=== PATIENT | male | born 1950 | race African-American/Black ===

== ENCOUNTER 2016-09-07 12:36 | Inpatient (IN) | payer MEDICARE, BC ==
--- NOTE | ~2016-09-07 | HP ---
History And Physical [place] [id number] [facility] [place]. [address] NAME: SEDRICK BARRIOS JR : 52 STATUS : REG ER PAT#: [id number] AGE: 65 ADM/REG DATE : 09/07/16 MR#: [id number] REPORT SERV DATE: 09/07/16 DICTATED BY: ERICA COUCH DATE: 09/07/16 REPORT STATUS : Draft TRANSCRIBED BY: MODL DATE: 09/07/16 DATE OF ADMISSION: 09/07/2016 CHIEF COMPLAINT: Loss of balance and body aches. HISTORY OF PRESENT ILLNESS: The patient is a 65-year-old male with history of bilateral lung transplant at [place], diabetes, CVA, CKD, BPH, bradycardia with resultant pacemaker, and COPD, who presents after having 48 hours of progressive weakness on the left side, change in speech that has been noticeable by the patient and the family. The patient reports that he has had stroke in the past and this was a similar type episode. The patient reports that he has had more pain over after having recent surgery about 4 weeks ago and has been taking more pain medications. Symptoms were asymmetric on his balance as he was having left-sided weakness more, has been constant, moderate severity. No pain radiating symptoms. No nausea, vomiting, shortness of breath, fever, or chills. Did have tachycardia. No feelings of palpitations. No worsening or relieving symptoms though the symptoms are still currently present. The patient does report that the patient was noted to be cocaine positive on UDS. Denies actually cocaine, however, reports that he did have exposure approximately 1 to 2 days ago and is very adamant that he has not taken anything. The patient is accompanied by son who is at bedside and is also aware of issues. REVIEW OF SYSTEMS: GENERAL: Noted for weakness, but no fever or chills. EYES: No eye pain or visual changes. ENT: No sore throat or ear pain. NEUROLOGIC: He does have numbness, speech changes, weakness on the left side . Abnormal gait. SKIN: No rashes or bruising. RESPIRATORY: No shortness of breath or cough. CV: No chest pain or palpitations but tachycardic. GI: No nausea or vomiting. : No dysuria or hematuria. MUSCULOSKELETAL: He does have chronic myalgias and arthralgias for which he was taking pain medications for. ENDO: Increased fatigue but no polyuria. HEME: No bleeding or bruising. IMMUNOLOGIC: No rhinorrhea. PSYCHIATRIC: No anxiety. Denies any acute confusion. PAST MEDICAL HISTORY: Diabetes type 2, sleep apnea, COPD, pacemaker, CVA, history of CKD, BPH, depression, gout, and bilateral lung transplant as well. SOCIAL HISTORY: He denies any current smoking, drinking, or recreational drugs, however, he did have exposure to people using cocaine. FAMILY HISTORY: Diabetes and hypertension. History And Physical [address] [address] NAME: SEDRICK BARRIOS JR : 52 STATUS : REG ER PAT#: [id number] AGE: 65 ADM/REG DATE : 09/07/16 MR#: [id number] REPORT SERV DATE: 09/07/16 DICTATED BY: ERICA COUCH DATE: 09/07/16 REPORT STATUS : Draft TRANSCRIBED BY: ANALILIA DATE: 09/07/16 SURGICAL HISTORY: Bilateral lung transplant. Pacer placement. Appendectomy. Neck surgery. TURP. ALLERGIES: NSAIDS, STATIN, IBUPROFEN, AND VORICONAZOLE. MEDICATIONS: Allopurinol; amlodipine; Lipitor; calcitriol; ; dapsone; Lasix; Neurontin; Robaxin; Myfortic; Percocet; Protonix; and Deltasone. EKG: Sinus tach and actually atrial flutter pattern with 2:1, rate of 142, noted after adenosine trial also. PHYSICAL EXAMINATION: VITAL SIGNS: The patient's blood pressure 139/93, temperature 98.3, pulse 142, respirations 20, and O2 saturation 99% on room air. GENERAL: Alert, no acute distress, but anxious. EYES: No scleral icterus. EOMI. ENT: Dry mucous membranes. Nares patent. RESPIRATORY: Clear to auscultation. No wheezes. Equal chest expansion. CV: Tachycardic after adenosine trial, still has atrial flutter pattern on rhythm. Cap refill less than 2 seconds in hands. GI: Soft, nontender. Bowel sounds positive. : Non-circumcised. Normal external genitalia. SKIN: Warm, dry. LYMPH: No cervical or supraclavicular lymphadenopathy. MUSCULOSKELETAL: Moves all extremities. Able to ambulate but very slow. NEUROLOGIC: No facial droop, but does have slow vocal omi, left hand side grossly weak, but able to ambulate with assistance but unable to lift self core back and forth around bed. PSYCHIATRIC: Anxious but appropriate mood and affect. LAB DATA: BNP 28.7. UDS positive for benzos and cocaine. Brain without contrast, no acute intracranial abnormality. Moderate cortical volume loss. Chronic deep white matter ischemic changes. Urinalysis, trace leukocyte esterase, nitrite negative, but only 3 wbc's, few bacteria. CMP: Sodium 141, potassium 4.0, chloride 105, bicarb 24, BUN and creatinine 39 and 1.96. Glucose 129. Troponin negative. LFTs within normal limits. Alkaline phosphatase 162. CBC: WBC count 9.5, H and H 11.8 and 37.6, and platelets 339. INR 1.1. ASSESSMENT AND PLAN: 1. Possible CVA. 2. Atrial flutter. 3. Acute cocaine exposure. 4. VINCENZO. 5. Hypertension. 6. Pacer history. 7. Bilateral lung transplant. 8. Obstructive sleep apnea. 9. Chronic immunosuppression. History And Physical [address] [address] NAME: SEDRICK BARRIOS JR : 52 STATUS : REG ER PAT#: [id number] AGE: 65 ADM/REG DATE : 09/07/16 MR#: [id number] REPORT SERV DATE: 09/07/16 DICTATED BY: ERICA COUCH DATE: 09/07/16 REPORT STATUS : Draft TRANSCRIBED BY: ANALILIA DATE: 09/07/16 PLAN: 1. For possible CVA with prior CVA history, does have a flutter history, cocaine history, and prior CVA history. Non tPA candidate since symptoms began greater than 48 hours ago, will need PT/OT/ST, aspirin. Continue home statin dose with atorvastatin 40 due to chronic immunosuppression medications and possible interactions and will have Neurology evaluate echocardiogram in the presence of flutter pattern. 2. Atrial flutter, Cardizem drip per Cardiology. No beta blockers with cocaine history. Adenosine has been given in the emergency room, still has flutter pattern and will keep on Cardizem drip. 3. Acute on chronic cocaine use. Denies use but does have exposure. I have discussed this with the patient and family. 4. VINCENZO. IV fluids. Monitor. Hold diuretics. 5. Hypertension, monitor, permissive with CVA. 6. 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 7. Bilateral lung transplant. Continue home chronic suppression therapy with prednisone, Myfortic, and dapsone for prophylaxis. 8. CEE, monitor serial O2. 9. Chronic immunosuppression. Monitor for additional super infections. 10.All questions answered with the patient and family at the bedside. Guarded prognosis discussed due to multitude of comorbidities. DDN/MODL Erica Couch MD / [id number]
--- NOTE | ~2016-09-07 | CN ---
Consultation Report [facility] [address] [place]. [address] NAME: SEDRICK CARO JR : 52 STATUS : ADM IN PAT#: [id number] AGE: 65 ADM/REG DATE : 09/07/16 MR#: [id number] REPORT SERV DATE: 09/08/16 DICTATED BY: RAJEEV STUART DATE: 09/08/16 REPORT STATUS : Draft TRANSCRIBED BY: MODL DATE: 09/08/16 CARDIOVASCULAR CONSULTATION DATE OF CONSULTATION: 09/08/2016 REFERRING PHYSICIAN: Rajeev Poole M.D., F.A.CXiomaraC. HISTORY OF PRESENT ILLNESS: Mr. Sedrick Caro is a 65-year-old gentleman, with past medical history significant for bilateral lung transplant at [place] in 2008. He also has history of chronic kidney disease, diabetes, remote CVA, and bradycardia, with permanent pacemaker implantation by Dr. Mo. He presented to the emergency room complaining of 48 hour history of increasing left-sided weakness. He denies any chest pain or shortness of breath. He denies any gastrointestinal, genitourinary, or respiratory complaints. REVIEW OF SYSTEMS: As above, otherwise noncontributory. The patient denies any orthopnea, paroxysmal nocturnal dyspnea, syncope, or presyncope. PAST MEDICAL HISTORY: As noted above and significant for bilateral lung transplant at [place]. The patient also with a history diabetes, CVA, chronic kidney disease, benign prostatic hypertrophy. He has history of COPD. He is status post permanent pacemaker implantation as noted above. MEDICATIONS: Prior to admission, see list. ALLERGIES: THE PATIENT REPORTS ALLERGIES TO STATINS, IBUPROFEN, VORICONAZOLE, AND NONSTEROIDAL MEDICATIONS. FAMILY HISTORY: Noncontributory. SOCIAL HISTORY: The patient denies any smoking or ethanol use. However, his urine drug screen is positive for cocaine and benzodiazepines. PHYSICAL EXAMINATION: VITAL SIGNS: Blood pressure 101/60, pulse 69, respiratory rate 16. The patient is afebrile. GENERAL: This is a well-developed, well-nourished, 65-year-old male, alert and oriented x3, in no acute distress. NECK: No jugular venous distention, hepatojugular reflux, or carotid bruits. CARDIOVASCULAR: Normal rate with irregular rhythm. No murmur, gallop, click, or rub. LUNGS: Clear to auscultation without wheezes, rales, or rhonchi. ABDOMEN: Soft, nontender, and nondistended. Positive bowel sounds. EXTREMITIES: Without clubbing, cyanosis, or edema. Consultation Report [place] [address] [place]. [address] NAME: SEDRICK CARO JR : 52 STATUS : ADM IN PAT#: [id number] AGE: 65 ADM/REG DATE : 09/07/16 MR#: [id number] REPORT SERV DATE: 09/08/16 DICTATED BY: RAJEEV STUART DATE: 09/08/16 REPORT STATUS : Draft TRANSCRIBED BY: MODL DATE: 09/08/16 DIAGNOSTIC DATA: EKG on presentation shows atrial fibrillation/flutter with right bundle branch block. LABORATORY DATA: Laboratory significant as noted above. His urine drug screen positive for benzodiazepines and cocaine. The patient's BMP significant for elevated BUN and creatinine at 39 and 1.96. The patient's troponins are 0.02, 0.03, and 0.04. CPK and MB are normal. ASSESSMENT: 1. Atrial fibrillation/flutter, likely exacerbated by cocaine, as well as history of lung transplant. 2. Status post permanent pacemaker implantation. 3. Status post bilateral lung transplant. 4. Questionable cerebrovascular accident. PLAN: 1. Check echo. 2. Continue Cardizem for rate control. 3. Check permanent pacemaker. 4. Heparin drip. SA/MODL Rajeev Stuart M.D., [facility] / [id number] CC: MD Rajeev Guerra M.D., F.A.C.C.
--- NOTE | ~2016-09-07 | DS ---
Discharge Summary [facility] [address] [place]. [address] NAME: SEDRICK BARRIOS JR : 52 STATUS : ADM IN PAT#: [id number] AGE: 65 ADM/REG DATE : 09/07/16 MR#: [id number] REPORT SERV DATE: 09/10/16 DICTATED BY: TOMY GOODEN DATE: 09/10/16 REPORT STATUS : Draft TRANSCRIBED BY: MODL DATE: 09/10/16 ADMISSION DATE: 09/07/2016 DISCHARGE DATE: 09/10/2016 PROCEDURES DONE: 1. 09/07/2016 CT of the brain without contrast, no acute intracranial abnormality identified at this time. [id number] cortical volume loss and finding compatible with mild chronic deep white matter ischemic changes. 2. 09/07/2016 chest x-ray: Low lungs with bibasilar atelectasis. Otherwise, no acute cardiopulmonary abnormality appreciated. 3. 09/08/2016 MRA of the head, normal intracranial MRA of the intracranial structures. Maximum intensity projection images were utilized for review. 4. MRA of the neck. No significant stenosis, carotid or vertebrals. 5. 08/29/2016 MRI of the brain negative evidence for acute or chronic ischemic changes. Incidental left cataract surgery noted. 6. 09/09/2016 2D echo: Difficult study due to limited acoustic windows. Normal LV size and systolic function. EF of 50% to 55%. No regional wall motion abnormalities identified. Mild diastolic dysfunction. Normal RV size and systolic function. Mild left atrial enlargement. No evidence of apical thrombus with use of IV contrast. Negative intravenous bubble study. No evidence of intracardiac shunt. CONSULTS: Dr. Colon. REASON FOR ADMISSION: Loss of balance and body aches. HISTORY OF PRESENT ILLNESS: A 65-year-old black male with past medical history of bilateral lung transplant at [place], history of diabetes, CVA, chronic kidney disease, BPH, bradycardia with pacemaker, COPD, presenting with 48 hours of loss of balance and body aches. The patient was admitted for further evaluation of possible TIA/CVA since the patient already has history of CVA. The patient had MRI and MRA of the head and neck, which were all within normal limits. The patient turned out to have positive for both benzos and cocaine. A repeat UDS on 09/08/2016 shows positive benzos, cocaine, and cannabis. More importantly, the patient was also noted to be in atrial fibrillation. Cardiology was consulted. The patient's atrial fibrillation was controlled with Cardizem, went to sinus rhythm. Cardiology recommended the patient be started on Eliquis. The patient will be started on 5 mg p.o. b.i.d. on discharge. DISPOSITION: The patient feels fine, no complaints. ACTIVITIES: As tolerated. DIET: Cardiac. INSTRUCTIONS UPON DISCHARGE: 1. The patient to follow up with Cardiology within two to three weeks. 2. The patient to follow up with primary care physicians within one to two weeks. Discharge Summary [place] [id number] [place]. [address] NAME: SEDRICK BARRIOS JR : 52 STATUS : ADM IN [facility]#: [id number] AGE: 65 ADM/REG DATE : 09/07/16 MR#: [id number] REPORT SERV DATE: 09/10/16 DICTATED BY: TOMY GOODEN DATE: 09/10/16 REPORT STATUS : Draft TRANSCRIBED BY: ANALILIA DATE: 09/10/16 MEDICATIONS UPON DISCHARGE: 1. Allopurinol 100 mg p.o. b.i.d. 2. Lipitor 40 mg p.o. q.h.s. 3. Calcitriol 0.75 mcg p.o. daily. 4. Cyclosporine 100 mg p.o. b.i.d. 5. Dapsone 100 mg p.o. daily. 6. Neurontin 100 mg p.o. b.i.d. 7. Robaxin 750 mg p.o. q.h.s. 8. Protonix 40 mg daily. 9. Prednisone 5 mg daily. 10.Betapace 40 mg b.i.d. 11.Mycophenolate 360 mg p.o. b.i.d. 12.Oxycodone 7.5 one tablet p.o. q.6 hours p.r.n. 13.Norvasc 5 mg p.o. daily. 14.Lasix 40 mg daily. DIAGNOSES UPON DISCHARGE: 1. Loss of balance with body aches secondary to either cocaine/benzo/cannabis use versus atrial flutter/atrial fibrillation. 2. Atrial fibrillation/flutter. Rate controlled on Eliquis. 3. Drug abuse. 4. Hypertension. 5. Acute kidney injury. 6. History of cerebrovascular accident. 7. History of lung transplant, on immunosuppressions. 8. Benign prostatic hypertrophy. 9. Bradycardia, status post pacemaker. 10.Chronic kidney disease. ARVIN/MARYL Tomy Gooden MD / [id number] CC: Tomy Gooden MD
[~2016-09-07 12:36] MED LIST: ACTONEL150 MG PO; ASAB PO; ATEN25 PO; ATRONASAL3 NAS; BACDS PO; BIST PO; BUM1 PO; CALTRA600D PO; CANNOT RECALL; CARDCD180 PO; CARDCD240 PO; CARDIZEM LA360 MG PO; CARTIA XT180 MG/24 PO; CATPATCH1 TOP; CITRACAL PO; COLCH6 PO; DAPSONE 100 MG100 MG OR; DAPSONE 100 MG100 MG PO; DSS PO; DURA25 TOP; FISH-EPA1000 MG PO; FLONASE NAS; HCTZ25B PO; HYDROCHLOROT25 MG PO; IMMUNE GLOBULIN; IRON OTC PO; IRON325 MG PO; L20 PO; L40 PO; LEXAPRO20 PO; LOPID6 PO; LORT7 PO; LORTAB10 PO; MEDROLPAK4; METHOC500B PO; METHOC750B PO; MEVACOR PO; MIRALAXPKT PO; MYFORTIC360 MG PO; NEBUPENT300 M1 IN; NEORAL100 MG OR; NEORAL100 MG PO; NEORAL25 MG OR; NEORAL25 MG PO; NEUR100 PO; NORCO1 TAB PO; NORV5 PO; NOVOPEN SC; NYS500UDL PO; P1 PO; P10 PO; P5 PO; PCET PO; PERCOCET1 TA2 PO; PERCOCET1 TA4 PO; PLAVIX PO; PR12.5 PO; PRAV10 PO; PREDNISOL5 PO; PROTONIX PO; RECLAST IV; ROCALTROL 0.0.25 MCG PO; ROCALTROL0.25 MCG OR; ROCALTROL0.25 MCG PO; ROCALTROL0.5 MCG PO; SANDIMMUNE100 MG OR; SANDIMMUNE25 MG OR; SANDIMMUNE25 MG PO; SEPTRA DS1 TAB PO; TIAZA1 PO; TRAMADOL PO; VALCYTE PO; VALTREX1 GM PO; VALTREX5 PO; VFEND200 PO; VITAMIN D1000 UNI1 PO; VITD PO; WELCHOL 625 MG625 MG PO; Z100 PO; ZETIA PO; [UNRECOGNIZED DRUG - OTHER] PO
[2016-09-07 13:37] LABS: BASOPHILS 0.2 %; BASOPHILS ABSOLUTE 0.02 10/3/uL (0.0-0.16); EOSINOPHILS 1.8 %; EOSINOPHILS ABSOLUTE 0.17 10/3/uL (0.0-0.53); ER CBC TAT 0 Hrs 05 Mins; HEMATOCRIT 37.6 % (40.0-51.0); HEMOGLOBIN 11.8 g/dL (13.6-17.8); IMMATURE GRANULOCYTES 0.8 %; IMMATURE GRANULOCYTES ABSOLUTE 0.08 10/3/uL (0.0-0.11); LYMPHOCYTES 9.1 %; LYMPHOCYTES ABSOLUTE 0.87 10/3/uL (0.67-4.30); MANUAL DIFF NO %; MEAN CORPUS HGB CONC 31.4 g/dL (32.0-36.0); MEAN CORPUSCULAR HEMOGLOB 25.9 pg (26.0-34.0); MEAN CORPUSCULAR VOLUME 82.5 fL (80-100); MEAN PLATELET VOLUME 9.9 fL (9.2-13.0); MONOCYTES 9.5 %; NEUTROPHILS 78.6 %; NEUTROPHILS ABSOLUTE 7.48 10/3/uL (2.02-8.40); PLATELET COUNT 339 10/3/uL (150-400); RBC DISTRIBUTION WIDTH 14.3 % (12.0-16.0); RED CELL COUNT 4.56 10/6/uL (4.7-6.1); WHITE BLOOD CELLS 9.5 10/3/uL (4.5-10.5)
[2016-09-07 13:46] LABS: INTERNATIONAL NORMAL RATI 1.1 UNITS (-); PROTIME (NOT ORD) 14.4 SEC (12.0-14.5)
[2016-09-07 13:55] LABS: ASCORBIC ACID (UR NOT ORDER) NEG (NEG); BILIRUBIN, URINE NEGATIVE (NEG); ER URINALYSIS TAT 0 Hrs 14 Mins; KETONE, URINE NEGATIVE (NEG); LEUKOCYTE ESTERASE(NOT OR TRACE (NEG); NITRITE (URINE) NEG (NEG); WBC (NOT ORDERED) (RFLEX) 3 (0-5)
[2016-09-07 13:55] LABS: CHLORIDE, SERUM 105 MMOL/L (96-112); CO2 (CARBON DIOXIDE) 24 MMOL/L (24-34); SGOT(AST) 21 U/L (5-40); SGPT(ALT) 20 U/L (5-65); SODIUM, SERUM 141 MMOL/L (135-148); TOTAL BILIRUBIN 0.8 MG/DL (0-1.2); TROPONIN I <0.02 NG/ML (<0.05)
[2016-09-07 13:56] LABS: A/G RATIO 0.7 (0.7-1.9); ALBUMIN 3.4 G/DL (3.5-5.0); ALKALINE PHOSPHATASE 162 U/L (45-117); BUN (BLOOD UREA NITROGEN) 39 MG/DL (6-23); CALCIUM, SERUM 9.8 MG/DL (8.5-10.4); CREATININE 1.96 MG/DL (0.70-1.30); GFR AFRICAN AMERICAN 41 ML/MIN (>=60); GFR NON AFRICAN AMERICAN 35 ML/MIN (>=60); GLOBULIN 4.6 G/DL (2.5-4.1); GLUCOSE, SERUM 129 MG/DL (60-99)
[2016-09-07] MEDS ORDERED: MYFORTIC360 MG PO (14:06)
[2016-09-07] MEDS ORDERED: Z100 PO (14:06)
[2016-09-07] MEDS ORDERED: P5 PO (14:06)
[2016-09-07] MEDS ORDERED: METHOC750B PO (14:07)
[2016-09-07] MEDS ORDERED: PERCOCET 7.5/321 TAB PO (14:08)
[2016-09-07] MEDS ORDERED: NEUR100 PO (14:08)
[2016-09-07] MEDS ORDERED: DAPSONE 100 MG100 MG PO (14:09)
[2016-09-07] MEDS ORDERED: ROCALTROL0.25 MCG PO (14:09)
[2016-09-07] MEDS ORDERED: NORV5 PO (14:09)
[2016-09-07] MEDS ORDERED: L40 PO (14:09)
[2016-09-07] MEDS ORDERED: PROTONIX PO (14:10)
[2016-09-07] MEDS ORDERED: LIPITOR40 PO (14:10)
[2016-09-07 14:13] LABS: AMPHETAMINES (NOT ORD) NEG (NEG); BARBITURATES (NOT ORDERED NEG (NEG); BENZODIAZEPINES (NOT ORD) POS (NEG); CANNABINOIDS (THC) NEG (NEG); COCAINE (NOT ORDERED) POS (NEG); OPIATES NEG (NEG); PHENCYCLIDINE(PCP) NEG (NEG); TRICYCLICS NEG (NEG)
[2016-09-07] MEDS ORDERED: NEORAL100 MG PO (14:13)
[2016-09-07 22:24] LABS: BASOPHILS 0.3 %; BASOPHILS ABSOLUTE 0.03 10/3/uL (0.0-0.16); EOSINOPHILS 2.5 %; EOSINOPHILS ABSOLUTE 0.22 10/3/uL (0.0-0.53); HEMOGLOBIN 12.1 g/dL (13.6-17.8); IMMATURE GRANULOCYTES 0.7 %; IMMATURE GRANULOCYTES ABSOLUTE 0.06 10/3/uL (0.0-0.11); LYMPHOCYTES 19.4 %; LYMPHOCYTES ABSOLUTE 1.71 10/3/uL (0.67-4.30); MEAN CORPUS HGB CONC 31.8 g/dL (32.0-36.0); MEAN CORPUSCULAR HEMOGLOB 26.5 pg (26.0-34.0); MEAN CORPUSCULAR VOLUME 83.2 fL (80-100); MEAN PLATELET VOLUME 9.3 fL (9.2-13.0); MONOCYTES 12.7 %; MONOCYTES ABSOLUTE 1.12 10/3/uL (0.21-1.20); NEUTROPHILS 64.4 %; NEUTROPHILS ABSOLUTE 5.66 10/3/uL (2.02-8.40); PLATELET COUNT 348 10/3/uL (150-400); RBC DISTRIBUTION WIDTH 14.3 % (12.0-16.0); RED CELL COUNT 4.57 10/6/uL (4.7-6.1); WHITE BLOOD CELLS 8.8 10/3/uL (4.5-10.5)
[2016-09-07 22:25] LABS: MANUAL DIFF NO %
[2016-09-07 22:31] LABS: INTERNATIONAL NORMAL RATI 1.1 UNITS (-); PROTIME (NOT ORD) 14.5 SEC (12.0-14.5)
[2016-09-07 22:32] LABS: PARTIAL THROMBO TIME 31.9 SEC (22.5-37.2)
[2016-09-07 22:47] LABS: CPK 96 U/L (0-200); HDL CHOLESTEROL 62 MG/DL (> 39); PHOSPHORUS, SERUM 2.3 MG/DL (2.5-4.5); TROPONIN I 0.03 NG/ML (<0.05)
[2016-09-07 22:49] LABS: CHOL/HDL RATIO(NOT ORDER) 2.6 (0-5); CHOLESTEROL 164 MG/DL (< 200); LDL CHOLESTEROL 77 MG/DL (< 130); NON-HDL CHOLESTEROL 102 MG/DL (< 160); TRIGLYCERIDE 126 MG/DL (< 150); ULTRASENSITIVE TSH 0.716 MCIU/ML (0.358-3.740)
[2016-09-08 06:17] LABS: CPK 88 U/L (0-200); TROPONIN I 0.04 NG/ML (<0.05)
[2016-09-08 06:18] LABS: CK-MB 1.9 NG/ML
[2016-09-08 11:18] LABS: AMPHETAMINES (NOT ORD) NEG (NEG); BARBITURATES (NOT ORDERED NEG (NEG); BENZODIAZEPINES (NOT ORD) POS (NEG); CANNABINOIDS (THC) POS (NEG); COCAINE (NOT ORDERED) POS (NEG); OPIATES NEG (NEG); PHENCYCLIDINE(PCP) NEG (NEG); TRICYCLICS NEG (NEG)
[2016-09-08 18:09] LABS: CK-MB 2.2 NG/ML; CPK 80 U/L (0-200); TROPONIN I 0.03 NG/ML (<0.05)
[2016-09-09 01:59] LABS: BASOPHILS 0.5 %; BASOPHILS ABSOLUTE 0.02 10/3/uL (0.0-0.16); EOSINOPHILS 5.2 %; IMMATURE GRANULOCYTES 0.5 %; IMMATURE GRANULOCYTES ABSOLUTE 0.02 10/3/uL (0.0-0.11); LYMPHOCYTES 28.1 %; LYMPHOCYTES ABSOLUTE 1.08 10/3/uL (0.67-4.30); MEAN CORPUS HGB CONC 30.9 g/dL (32.0-36.0); MEAN CORPUSCULAR HEMOGLOB 26.2 pg (26.0-34.0); MEAN CORPUSCULAR VOLUME 84.8 fL (80-100); MEAN PLATELET VOLUME 9.5 fL (9.2-13.0); MONOCYTES ABSOLUTE 0.46 10/3/uL (0.21-1.20); NEUTROPHILS 53.7 %; NEUTROPHILS ABSOLUTE 2.06 10/3/uL (2.02-8.40); PLATELET COUNT 304 10/3/uL (150-400); RBC DISTRIBUTION WIDTH 14.2 % (12.0-16.0)
[2016-09-09 02:00] LABS: HEMATOCRIT 30.7 % (40.0-51.0); HEMOGLOBIN 9.5 g/dL (13.6-17.8); MANUAL DIFF NO %; RED CELL COUNT 3.62 10/6/uL (4.7-6.1); WHITE BLOOD CELLS 3.8 10/3/uL (4.5-10.5)
[2016-09-09 02:16] LABS: A/G RATIO 0.8 (0.7-1.9); ALBUMIN 2.7 G/DL (3.5-5.0); ALKALINE PHOSPHATASE 113 U/L (45-117); BUN (BLOOD UREA NITROGEN) 26 MG/DL (6-23); CALCIUM, SERUM 8.1 MG/DL (8.5-10.4); CHLORIDE, SERUM 106 MMOL/L (96-112); CO2 (CARBON DIOXIDE) 29 MMOL/L (24-34); CREATININE 1.65 MG/DL (0.70-1.30); GFR AFRICAN AMERICAN 50 ML/MIN (>=60); GFR NON AFRICAN AMERICAN 43 ML/MIN (>=60); GLOBULIN 3.4 G/DL (2.5-4.1); GLUCOSE, SERUM 119 MG/DL (60-99); POTASSIUM, SERUM 4.1 MMOL/L (3.5-5.3); SGOT(AST) 20 U/L (5-40); SGPT(ALT) 19 U/L (5-65); SODIUM, SERUM 142 MMOL/L (135-148); TOTAL BILIRUBIN 0.6 MG/DL (0-1.2); TOTAL PROTEIN 6.1 G/DL (6.0-8.5)
[2016-09-10 05:40] LABS: BASOPHILS 0.5 %; BASOPHILS ABSOLUTE 0.02 10/3/uL (0.0-0.16); EOSINOPHILS 4.3 %; EOSINOPHILS ABSOLUTE 0.19 10/3/uL (0.0-0.53); HEMATOCRIT 30.8 % (40.0-51.0); HEMOGLOBIN 9.5 g/dL (13.6-17.8); IMMATURE GRANULOCYTES 0.2 %; IMMATURE GRANULOCYTES ABSOLUTE 0.01 10/3/uL (0.0-0.11); LYMPHOCYTES 36.5 %; LYMPHOCYTES ABSOLUTE 1.61 10/3/uL (0.67-4.30); MEAN CORPUS HGB CONC 30.8 g/dL (32.0-36.0); MEAN CORPUSCULAR VOLUME 84.2 fL (80-100); MEAN PLATELET VOLUME 9.5 fL (9.2-13.0); MONOCYTES 10.4 %; MONOCYTES ABSOLUTE 0.46 10/3/uL (0.21-1.20); NEUTROPHILS 48.1 %; NEUTROPHILS ABSOLUTE 2.12 10/3/uL (2.02-8.40); PLATELET COUNT 319 10/3/uL (150-400); RBC DISTRIBUTION WIDTH 14.3 % (12.0-16.0); RED CELL COUNT 3.66 10/6/uL (4.7-6.1); WHITE BLOOD CELLS 4.4 10/3/uL (4.5-10.5)
[2016-09-10 05:44] LABS: MANUAL DIFF NO %
[2016-09-10 05:57] LABS: A/G RATIO 0.8 (0.7-1.9); ALBUMIN 2.5 G/DL (3.5-5.0); ALKALINE PHOSPHATASE 109 U/L (45-117); BUN (BLOOD UREA NITROGEN) 29 MG/DL (6-23); CALCIUM, SERUM 8.7 MG/DL (8.5-10.4); CHLORIDE, SERUM 109 MMOL/L (96-112); CO2 (CARBON DIOXIDE) 28 MMOL/L (24-34); CREATININE 1.77 MG/DL (0.70-1.30); GFR AFRICAN AMERICAN 46 ML/MIN (>=60); GFR NON AFRICAN AMERICAN 40 ML/MIN (>=60); GLOBULIN 3.3 G/DL (2.5-4.1); GLUCOSE, SERUM 110 MG/DL (60-99); POTASSIUM, SERUM 4.4 MMOL/L (3.5-5.3); SGOT(AST) 33 U/L (5-40); SGPT(ALT) 25 U/L (5-65); SODIUM, SERUM 143 MMOL/L (135-148); TOTAL BILIRUBIN 0.5 MG/DL (0-1.2); TOTAL PROTEIN 5.8 G/DL (6.0-8.5)
== END 2016-09-11 13:26 | DRG 683 ==
LOC: ER 12:36 → 2SO 18:32
PROVIDERS: Emergency Medicine; Hospitalist; Student in an Organized Health Care Education/Training Program
DX: N17.9 Acute kidney failure, unspecified (principal); Z94.2 Lung transplant status; E11.22 Type 2 diabetes mellitus with diabetic chronic kidney disease; Z99.81 Dependence on supplemental oxygen; I48.92 Unspecified atrial flutter; I69.354 Hemiplegia and hemiparesis following cerebral infarction affecting left non-dominant side; F14.229 Cocaine dependence with intoxication, unspecified; I48.91 Unspecified atrial fibrillation; G47.33 Obstructive sleep apnea (adult) (pediatric); N40.0 Benign prostatic hyperplasia without lower urinary tract symptoms; J44.9 Chronic obstructive pulmonary disease, unspecified; F12.20 Cannabis dependence, uncomplicated; N18.9 Chronic kidney disease, unspecified; I12.9 Hypertensive chronic kidney disease with stage 1 through stage 4 chronic kidney disease, or unspecified chronic kidney disease; Z79.01 Long term (current) use of anticoagulants; Z88.3 Allergy status to other anti-infective agents; Z95.0 Presence of cardiac pacemaker; Z82.49 Family history of ischemic heart disease and other diseases of the circulatory system; Z88.8 Allergy status to other drugs, medicaments and biological substances; Z88.6 Allergy status to analgesic agent; Z86.73 Personal history of transient ischemic attack (TIA), and cerebral infarction without residual deficits
CPT/HCPCS: 70450; 70544; 70547; 70551-52; 71010; 80053; 80061; 80305; 81001; 82550; 82553; 83036; 83735; 83880; 84100; 84443; 84484; 85025; 85610; 85730; 87389; 93005; 96374; 96375; 96376; 97110-GP; 97116-GP; 97161-GP; 97166-GO; 99285; A9270-GY; C8929; G8978-CK-GP; G8979-CI-GP; G8987-CK-GO; G8988-CJ-GO; J0153; J7502; Q9957